=== PATIENT | female | born 1990 | race Caucasian/White ===

== ENCOUNTER 2016-11-12 13:20 | Inpatient (IN) ==
[~2016-11-12 13:20] MED LIST: NS 1,000 ML IV ONE
[2016-11-12] MEDS ORDERED: ROCEPHIN 1 GM/NS 1 GM/50 ML IVPB IV ONE (13:30)
[2016-11-12] MEDS ORDERED: NS 1,000 ML ONE (14:10)
[2016-11-12] MEDS ORDERED: ROCEPHIN 1 GM/NS 1 GM/50 ML IVPB ONE (14:10)
[2016-11-12] MEDS ORDERED: VANCOMYCIN 1 GM/NS 1 GM/250 ML IVPB ONE (15:22)
[2016-11-12] MEDS ORDERED: VANCOMYCIN 1 GM/NS 1 GM/250 ML IVPB IV ONE (15:22)
[2016-11-12] MEDS ORDERED: NORCO-5 PO ONE (15:30)
[2016-11-12] MEDS ORDERED: BENADRYL IV ONE (15:30)
[2016-11-12] MEDS ORDERED: BENADRYL ONE (15:35)
[2016-11-12] MEDS ORDERED: NORCO-5 ONE (15:35)
[2016-11-12] MEDS: NS 1,000 ML IV SCH (18:05)
[2016-11-12 19:01] LABS: URINE MICRO REVIEW NEEDED? NO; URINE SOURCE VOIDED
--- NOTE | 2016-11-12 19:02 | Diag Imaging Result Document ---
PROCEDURE NAME: CHEST-2 VIEWS - 11/12/2016 TWO VIEWS OF THE CHEST: COMPARISON: There are no previous studies. FINDINGS: There is no evidence of acute cardiac or pulmonary disease. IMPRESSION: Normal chest.
[2016-11-12 20:26] LABS: BILIRUBIN URINE NEGATIVE (NEGATIVE); BLOOD URINE TRACE (NEGATIVE); COLOR YELLOW; GLUCOSE URINE NEGATIVE (NEGATIVE); LEUKOCYTES URINE NEGATIVE (NEGATIVE); NITRITE URINE NEGATIVE (NEGATIVE); PROTEIN URINE NEGATIVE (NEGATIVE); SP GRAVITY URINE 1.016; TURBIDITY URINE CLEAR (CLEAR); UR EPITHELIAL CELLS <10 /HPF (<10); URINE BACTERIA NEGATIVE /HPF; URINE RBC <10 /HPF (<10); URINE WBC <10 /HPF (<10); UROBILINOGEN URINE NORMAL (NORMAL)
[2016-11-12 20:28] LABS: HEMATOCRIT 40.5 % (37.0-47.0); HEMOGLOBIN 13.7 g/dL (12.0-16.0); RBC 4.31 XMIL (4.2-5.4)
[2016-11-12 20:29] LABS: BASO% 0.2 % (0.0-0.8); EOS# 0.03 X1000 (0.0-0.7); EOS% 0.1 % (0.0-10.0); IMM GRAN# 0.24 X1000 (0.0-0.04); IMM GRAN% 0.7 % (0.0-0.5); LYMPH# 1.58 X1000 (1.2-3.4); LYMPH% 4.3 % (20.5-51.1); MANUAL DIFF NEEDED? YES; MCH 31.8 PG (27-31); MCHC 33.8 g/dL (33-37); MONO# 2.58 X1000 (0.11-0.59); MPV 9.9 FL (7.4-10.4); NEUT% 87.7 % (42.2-75.2); PLT 591 X1000 (130-400)
[2016-11-12 20:30] LABS: BANDS 1 % (0-1); LYMPHS 8 % (21-51); MONO 7 % (1-9)
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
[2016-11-12] MEDS ORDERED: VANCOMYCIN IV PER PHARMACY MISC SCH (21:45)
[2016-11-12] MEDS: LEVAQUIN 750 MG/D5W 750 MG/150 ML IVPB IV SCH (23:47)
[2016-11-12] MEDS: LOVENOX SUBQ SCH (23:47)
[2016-11-12 23:51] LABS: AGAP 17; BUN 20 mg/dL (8-22); CHLORIDE 100 mmol/L (98-107); POTASSIUM 4.3 mmol/L (3.5-5.1); SODIUM 138 mmol/L (136-145); TCO2 21 mmol/L (25-35)
[2016-11-12 23:52] LABS: ALBUMIN 4.5 g/dL (3.5-5.0); COSMO 276; TOTAL BILIRUBIN 0.41 mg/dL (0.20-1.00); TOTAL PROTEIN 7.5 g/dL (6.3-8.3)
[2016-11-12 23:53] LABS: ALKALINE PHOSPHATASE 71 U/L (32-104); GOT 20 U/L (10-30); GPT 29 U/L (10-36)
[2016-11-13] MEDS: TYLENOL PO PRN ×5 (00:15→22:01)
[2016-11-13] MEDS ORDERED: VANCOMYCIN 2,000 MG in NS 500 ML IV SCH (01:00)
[2016-11-13 01:19] LABS: AGAP 21; BUN 9 mg/dL (8-22); CHLORIDE 99 mmol/L (98-107); POTASSIUM 4.3 mmol/L (3.5-5.1); SODIUM 138 mmol/L (136-145); TCO2 18 mmol/L (25-35)
[2016-11-13 01:20] LABS: CALCIUM 10.2 mg/dL (8.8-10.2); COSMO 276
[2016-11-13] MEDS: VANCOMYCIN 2,000 MG in NS 500 ML IV SCH ×3 (02:03→13:15)
[2016-11-13] MEDS ORDERED: BENADRYL IV ONE (02:07)
[2016-11-13 07:17] LABS: BASO% 0.2 % (0.0-0.8); EOS# 0.01 X1000 (0.0-0.7); HEMATOCRIT 36.7 % (37.0-47.0); HEMOGLOBIN 12.3 g/dL (12.0-16.0); IMM GRAN# 0.13 X1000 (0.0-0.04); IMM GRAN% 0.4 % (0.0-0.5); LYMPH# 2.86 X1000 (1.2-3.4); MANUAL DIFF NEEDED? YES; MCHC 33.5 g/dL (33-37); MCV 95.6 FL (81-99); MONO# 3.21 X1000 (0.11-0.59); MONO% 10.1 % (1.7-9.3); MPV 10.2 FL (7.4-10.4); NEUT% 80.3 % (42.2-75.2); PLT 505 X1000 (130-400); RBC 3.84 XMIL (4.2-5.4)
[2016-11-13 07:27] LABS: AGAP 13; BUN 5 mg/dL (8-22); CALCIUM 8.4 mg/dL (8.8-10.2); CHLORIDE 105 mmol/L (98-107); COSMO 275; POTASSIUM 3.8 mmol/L (3.5-5.1); SODIUM 138 mmol/L (136-145); TCO2 20 mmol/L (25-35)
[2016-11-13 08:13] LABS: BANDS 10 % (0-1); LYMPHS 6 % (21-51); MONO 8 % (1-9)
[2016-11-13] MEDS: NS 1,000 ML IV SCH (08:32)
--- NOTE | 2016-11-13 12:57 | Diag Imaging Result Document ---
PROCEDURE NAME: SINUSES - 11/13/2016 SINUS SERIES: FINDINGS: The paranasal sinuses appear essentially clear. The right maxillary sinus is noted to be smaller than the right, the right maxillary sinus appears grossly clear. IMPRESSION: Essentially clear paranasal sinuses. The right maxillary sinus is noted to be smaller than the left.
[2016-11-13] MEDS: ROBITUSSIN-DM PO PRN ×2 (13:13→19:53)
[2016-11-13] MEDS ORDERED: BENADRYL IV PRN (13:23)
[2016-11-13] MEDS ORDERED: BENADRYL ONE (13:28)
--- NOTE | 2016-11-13 14:44 | PROGRESS NOTE ---
DATE: 11/13/2016 SUBJECTIVE: Fever is coming down. Some back pain. Low grade fever of 100.5. REVIEW OF SYSTEMS: HEENT: Denies of any headache, photophobia, nausea, vomiting, sinus congestion, or postnasal drainage. No sore throat. Cardiopulmonary: No chest pain or shortness of breath. Gastrointestinal: No nausea, vomiting, abdominal pain. Genitourinary: No history of dysuria. Skin: No skin rashes. Musculoskeletal: Occasional back pain. Neurologic: No focal symptoms or neck rigidity. PHYSICAL EXAMINATION: Vital Signs: Temperature is 100.5, tachycardic, blood pressure is stable. Height 5 feet 4 inches, 267 pounds. HEENT: Atraumatic, normocephalic. No facial tenderness. TMs are normal. No exudate noted in the tonsil area. Neck: No neck rigidity. Chest: Clear to auscultation. Heart: Sounds are regular. Abdomen: Belly is soft, nontender. Good bowel sounds. Neurologic: Nonfocal. INVESTIGATIONS: White cell count 31,000, hematocrit 36, platelets 505,000. SMA 7 is normal. Urinalysis is clear. Plasma lactate is normal. X-ray of the sinuses: No air-fluid level is present. All the sinuses are clear. Chest x-ray: Normal chest. Influenza screen is negative. Blood cultures and throat cultures are pending. ASSESSMENT AND PLAN: 1. Fever, leukocytosis, immunocompromised. Plan is broad-spectrum antibiotics empirically with IV Levaquin and vancomycin. 2. History of [place] syndrome. Slow infusion of vancomycin. Benadryl 25 mg 15 minutes before the IV vancomycin. 3. IV hydration with saline. 4. Upper respiratory infection. No acute sinusitis noted in the x-rays of the sinuses. 5. Immunocompromised. Consider using pneumococcal 13 vaccine before the discharge. 6. Deep vein thrombosis prophylaxis with Lovenox. 7. Discussed with the patient's mother at bedside and Dr. Vo is going to follow up in the morning. cc: MD Braxton Lord MD
[2016-11-13] MEDS: BROMFED DM LIQUID PO PRN (17:31)
[2016-11-13] MEDS: LEVAQUIN 750 MG/D5W 750 MG/150 ML IVPB IV SCH (19:53)
[2016-11-13] MEDS: LOVENOX SUBQ SCH (19:53)
[2016-11-13] MEDS ORDERED: ZYRTEC-D 12HR PO ONE (20:37)
[2016-11-14] MEDS: NS 1,000 ML IV SCH ×4 (00:57→16:20)
[2016-11-14] MEDS: LOVENOX SUBQ SCH ×2 (00:57→20:31)
[2016-11-14] MEDS: LEVAQUIN 750 MG/D5W 750 MG/150 ML IVPB IV SCH ×2 (00:57→20:31)
[2016-11-14] MEDS: VANCOMYCIN 2,000 MG in NS 500 ML IV SCH ×2 (01:07→13:43)
[2016-11-14] MEDS: TYLENOL PO PRN ×3 (01:07→20:31)
[2016-11-14] MEDS: BENADRYL IV SCH ×2 (01:07→13:42)
[2016-11-14] MEDS: BROMFED DM LIQUID PO PRN ×2 (06:26→20:31)
[2016-11-14 06:56] LABS: BASO% 0.3 % (0.0-0.8); EOS# 0.42 X1000 (0.0-0.7); EOS% 1.6 % (0.0-10.0); HEMATOCRIT 35.7 % (37.0-47.0); HEMOGLOBIN 11.8 g/dL (12.0-16.0); IMM GRAN# 0.09 X1000 (0.0-0.04); IMM GRAN% 0.4 % (0.0-0.5); LYMPH% 15.2 % (20.5-51.1); MANUAL DIFF NEEDED? YES; MCH 31.6 PG (27-31); MCHC 33.1 g/dL (33-37); MCV 95.7 FL (81-99); MONO# 2.63 X1000 (0.11-0.59); MONO% 10.3 % (1.7-9.3); MPV 10.2 FL (7.4-10.4); NEUT% 72.2 % (42.2-75.2); PLT 463 X1000 (130-400); RBC 3.73 XMIL (4.2-5.4)
[2016-11-14 07:08] LABS: EOS 2 % (1-10); LYMPHS 22 % (21-51)
[2016-11-14 07:16] LABS: AGAP 12; BUN 5 mg/dL (8-22); CALCIUM 8.4 mg/dL (8.8-10.2); CHLORIDE 106 mmol/L (98-107); COSMO 280; POTASSIUM 3.8 mmol/L (3.5-5.1); SODIUM 141 mmol/L (136-145); TCO2 23 mmol/L (25-35)
[2016-11-14] MEDS: VALTREX PO SCH (20:31)
[2016-11-15] MEDS: VANCOMYCIN 2,000 MG in NS 500 ML IV SCH (02:01)
[2016-11-15] MEDS: BENADRYL IV SCH ×2 (02:01→12:47)
[2016-11-15] MEDS: NS 1,000 ML IV SCH ×2 (02:15→08:20)
[2016-11-15] MEDS: TYLENOL PO PRN (06:06)
[2016-11-15] MEDS: BROMFED DM LIQUID PO PRN (06:07)
[2016-11-15 06:20] LABS: MANUAL DIFF NEEDED? NO
[2016-11-15 06:28] LABS: BASO% 0.4 % (0.0-0.8); EOS# 0.54 X1000 (0.0-0.7); EOS% 3.6 % (0.0-10.0); HEMATOCRIT 35.7 % (37.0-47.0); HEMOGLOBIN 12.2 g/dL (12.0-16.0); IMM GRAN# 0.06 X1000 (0.0-0.04); IMM GRAN% 0.4 % (0.0-0.5); LYMPH# 3.53 X1000 (1.2-3.4); LYMPH% 23.8 % (20.5-51.1); MCH 32.4 PG (27-31); MCHC 34.2 g/dL (33-37); MCV 94.9 FL (81-99); MONO# 1.57 X1000 (0.11-0.59); MONO% 10.6 % (1.7-9.3); MPV 10.1 FL (7.4-10.4); NEUT% 61.2 % (42.2-75.2); PLT 519 X1000 (130-400); RBC 3.76 XMIL (4.2-5.4)
[2016-11-15 06:51] LABS: AGAP 14; BUN 7 mg/dL (8-22); CALCIUM 8.3 mg/dL (8.8-10.2); CHLORIDE 105 mmol/L (98-107); COSMO 278; POTASSIUM 3.9 mmol/L (3.5-5.1); SODIUM 140 mmol/L (136-145); TCO2 21 mmol/L (25-35)
[2016-11-15 07:45] VITALS: BP 119/58
[2016-11-15] MEDS: VALTREX PO SCH (08:19)
[2016-11-15] MEDS ORDERED: VALTREX PO SCH (09:00)
[2016-11-15] MEDS ORDERED: DOXYCYCLINE PO SCH (21:00)
[2016-11-16] MEDS ORDERED: LEVAQUIN PO SCH (09:00)
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
== END 2016-11-15 13:18 | disposition home or self-care (01) ==
LOC: 3N 16:40 → UNDODISIN 11-15 13:18
PROVIDERS: ADMIT Family Medicine; ATTEND Family Medicine